=== PATIENT | male | born 1935 | race Hispanic/Latino ===

== ENCOUNTER 2022-08-15 12:24 | Inpatient (IN) | payer MEDICARE ==
[~2022-08-15] VITALS: Ht 175.3 cm; Wt 77.2 kg
[2022-08-15] VITALS (13 sets, daily range): BP systolic 100–140; BP diastolic 40–91
[2022-08-15] MEDS ORDERED: CLOPIDOGREL75 MG PO (13:09)
[2022-08-15] MEDS ORDERED: ASPIRIN81 MG PO (13:09)
[2022-08-15] MEDS ORDERED: BENAZEPRIL HCL10 MG PO (13:09)
[2022-08-15] MEDS ORDERED: AMLODIPINE BESY10 MG PO (13:09)
[2022-08-15] MEDS ORDERED: DOXAZOSIN MESYLA2 MG PO (13:09)
[2022-08-15] MEDS ORDERED: FLOMAX0.4 MG PO (13:09)
[2022-08-15] MEDS ORDERED: SIMVASTATIN20 MG PO (13:09)
[2022-08-15] MEDS ORDERED: BENAZEPRIL-HCT1 EAC3 PO (13:09)
[2022-08-15] MEDS ORDERED: REMDESIVIR 200MG 200 MG in SODIUM CHLORIDE 0.9% 100 ML IV ONE (13:30)
[2022-08-15 13:31] LABS: BASOPHILS % 0.2 % (0.0-1.0); HEMATOCRIT 32.1 % (38.2-49.6); HEMOGLOBIN 11.4 g/dL (14.0-18.0); LYMPHOCYTES # (AUTO) 0.2 (1.0-3.2); LYMPHOCYTES % 1.4 % (18.0-39.1); MEAN CORPUSCULAR HEMOGLOBIN 32.2 pg (28-32); MEAN CORPUSCULAR HGB CONC 35.5 g/dL (31-35); MEAN CORPUSCULAR VOLUME 90.7 fL (81-99); MONOCYTES # (AUTO) 0.2 (0.2-0.8); MONOCYTES % 1.8 % (4.4-11.3); NEUTROPHILS # (AUTO) 11.2 (2.1-6.9); NEUTROPHILS % 95.8 % (38.7-80.0); PLATELET COUNT 245 x10e3/uL (140-360); RED BLOOD COUNT 3.54 x10e6/uL (4.3-5.7); RED CELL DISTRIBUTION WIDTH 12.3 % (11.7-14.4)
[2022-08-15 13:52] LABS: ALBUMIN 2.6 g/dL (3.5-5.0); ALBUMIN/GLOBULIN RATIO 0.7 (0.8-2.0); CALCIUM 8.6 mg/dL (8.4-10.2); CREATININE, SERUM 1.08 mg/dL (0.72-1.25)
[2022-08-15] MEDS ORDERED: POTASSIUM CHLORIDE 20 MEQ TAB CR PO ONE (14:30)
[2022-08-15] MEDS: DEXAMETHASONE SOD PHOS 10 MG/1 ML VIAL IV SCH (15:15)
[2022-08-15] MEDS: ENOXAPARIN SOD INJ 40 MG/0.4 ML SYR SC SCH (16:33)
[2022-08-15] MEDS: BENZONATATE 100 MG CAP PO PRN (20:55)
[2022-08-15] MEDS: SIMVASTATIN 20 MG TAB PO SCH (20:55)
[2022-08-16] VITALS (24 sets, daily range): BP systolic 99–129; BP diastolic 32–94
[2022-08-16 06:31] LABS: BASOPHILS % 0.1 % (0.0-1.0); HEMATOCRIT 35.2 % (38.2-49.6); HEMOGLOBIN 11.4 g/dL (14.0-18.0); LYMPHOCYTES # (AUTO) 0.5 (1.0-3.2); LYMPHOCYTES % 3.4 % (18.0-39.1); MEAN CORPUSCULAR HEMOGLOBIN 31.5 pg (28-32); MEAN CORPUSCULAR HGB CONC 32.4 g/dL (31-35); MEAN CORPUSCULAR VOLUME 97.2 fL (81-99); MONOCYTES # (AUTO) 0.5 (0.2-0.8); MONOCYTES % 3.2 % (4.4-11.3); NEUTROPHILS # (AUTO) 13.2 (2.1-6.9); NEUTROPHILS % 92.6 % (38.7-80.0); PLATELET COUNT 311 x10e3/uL (140-360); RED BLOOD COUNT 3.62 x10e6/uL (4.3-5.7); RED CELL DISTRIBUTION WIDTH 11.8 % (11.7-14.4)
[2022-08-16 07:08] LABS: ANION GAP 15.5 mmol/L (8-16); CALCIUM 8.7 mg/dL (8.4-10.2); MAGNESIUM 2.1 MG/DL (1.3-2.1); PHOSPHORUS 3.7 MG/DL (2.3-4.7); POTASSIUM 3.5 mmol/L (3.5-5.1)
[2022-08-16] MEDS: TAMSULOSIN HCL 0.4 MG CAP PO SCH (08:15)
[2022-08-16] MEDS: LORATADINE 10 MG TAB PO SCH (08:15)
[2022-08-16] MEDS: DEXAMETHASONE SOD PHOS 10 MG/1 ML VIAL IV SCH (08:16)
[2022-08-16] MEDS ORDERED: POTASSIUM CHLORIDE 20 MEQ TAB CR PO ONE (11:00)
[2022-08-16] MEDS: REMDESIVIR 100MG 100 MG in SODIUM CHLORIDE 0.9% 100 ML IV SCH (14:09)
[2022-08-16] MEDS: ENOXAPARIN SOD INJ 40 MG/0.4 ML SYR SC SCH (16:39)
[2022-08-16] MEDS: SIMVASTATIN 20 MG TAB PO SCH (20:51)
[2022-08-17] VITALS (26 sets, daily range): BP systolic 101–157; BP diastolic 36–89
[2022-08-17 07:30] LABS: BASOPHILS % 0.2 % (0.0-1.0); HEMATOCRIT 34.8 % (38.2-49.6); HEMOGLOBIN 11.4 g/dL (14.0-18.0); LYMPHOCYTES # (AUTO) 0.6 (1.0-3.2); LYMPHOCYTES % 3.4 % (18.0-39.1); MEAN CORPUSCULAR HEMOGLOBIN 31.8 pg (28-32); MEAN CORPUSCULAR HGB CONC 32.8 g/dL (31-35); MEAN CORPUSCULAR VOLUME 96.9 fL (81-99); MONOCYTES # (AUTO) 0.8 (0.2-0.8); MONOCYTES % 4.5 % (4.4-11.3); NEUTROPHILS # (AUTO) 16.5 (2.1-6.9); NEUTROPHILS % 91.2 % (38.7-80.0); PLATELET COUNT 364 x10e3/uL (140-360); RED BLOOD COUNT 3.59 x10e6/uL (4.3-5.7)
[2022-08-17 08:03] LABS: ANION GAP 13.9 mmol/L (8-16); CALCIUM 8.4 mg/dL (8.4-10.2); CREATININE, SERUM 0.95 mg/dL (0.72-1.25); PHOSPHORUS 3.5 MG/DL (2.3-4.7); POTASSIUM 3.9 mmol/L (3.5-5.1)
[2022-08-17] MEDS: BARICITINIB 2 MG TABLET PO SCH (08:49)
[2022-08-17] MEDS: TAMSULOSIN HCL 0.4 MG CAP PO SCH (08:49)
[2022-08-17] MEDS: DEXAMETHASONE SOD PHOS 10 MG/1 ML VIAL IV SCH (08:49)
[2022-08-17] MEDS: LORATADINE 10 MG TAB PO SCH (08:49)
[2022-08-17] MEDS: REMDESIVIR 100MG 100 MG in SODIUM CHLORIDE 0.9% 100 ML IV SCH (13:23)
[2022-08-17] MEDS: ENOXAPARIN SOD INJ 40 MG/0.4 ML SYR SC SCH (17:54)
[2022-08-17] MEDS: GUAIFENESIN/DEXTROMETHORPHAN LIQD 5 ML UDC NG PRN (17:54)
[2022-08-17] MEDS: SIMVASTATIN 20 MG TAB PO SCH (20:43)
[2022-08-17] MEDS: BENZONATATE 100 MG CAP PO PRN (23:04)
[2022-08-18] VITALS (25 sets, daily range): BP systolic 127–176; BP diastolic 49–130
[2022-08-18 06:48] LABS: BASOPHILS % 0.1 % (0.0-1.0); HEMATOCRIT 33.3 % (38.2-49.6); HEMOGLOBIN 11.3 g/dL (14.0-18.0); LYMPHOCYTES # (AUTO) 0.8 (1.0-3.2); LYMPHOCYTES % 6.2 % (18.0-39.1); MEAN CORPUSCULAR HEMOGLOBIN 31.3 pg (28-32); MEAN CORPUSCULAR HGB CONC 33.9 g/dL (31-35); MEAN CORPUSCULAR VOLUME 92.2 fL (81-99); MONOCYTES # (AUTO) 0.8 (0.2-0.8); MONOCYTES % 5.9 % (4.4-11.3); NEUTROPHILS # (AUTO) 11.8 (2.1-6.9); NEUTROPHILS % 86.9 % (38.7-80.0); PLATELET COUNT 380 x10e3/uL (140-360); RED BLOOD COUNT 3.61 x10e6/uL (4.3-5.7); RED CELL DISTRIBUTION WIDTH 12.7 % (11.7-14.4)
[2022-08-18 07:09] LABS: ALBUMIN 2.2 g/dL (3.5-5.0); ALBUMIN/GLOBULIN RATIO 0.6 (0.8-2.0); ANION GAP 14.8 mmol/L (8-16); CALCIUM 8.3 mg/dL (8.4-10.2); CREATININE, SERUM 0.88 mg/dL (0.72-1.25); POTASSIUM 3.8 mmol/L (3.5-5.1)
[2022-08-18] MEDS: DEXAMETHASONE SOD PHOS 10 MG/1 ML VIAL IV SCH (08:34)
[2022-08-18] MEDS: TAMSULOSIN HCL 0.4 MG CAP PO SCH (08:35)
[2022-08-18] MEDS: BENZONATATE 100 MG CAP PO PRN ×2 (08:35→16:31)
[2022-08-18] MEDS: LORATADINE 10 MG TAB PO SCH (08:35)
[2022-08-18] MEDS: BARICITINIB 2 MG TABLET PO SCH (08:35)
[2022-08-18] MEDS: DEXMEDETOMIDINE 400MCG/NS100ML 100 ML IV PRN (11:28)
[2022-08-18] MEDS: REMDESIVIR 100MG 100 MG in SODIUM CHLORIDE 0.9% 100 ML IV SCH (14:06)
[2022-08-18] MEDS: ENOXAPARIN SOD INJ 40 MG/0.4 ML SYR SC SCH (16:31)
[2022-08-18] MEDS: SIMVASTATIN 20 MG TAB PO SCH (21:01)
[2022-08-19] VITALS (29 sets, daily range): BP systolic 114–192; BP diastolic 49–124
[2022-08-19] MEDS: DEXMEDETOMIDINE 400MCG/NS100ML 100 ML IV PRN ×2 (06:20→18:30)
[2022-08-19 06:57] LABS: BASOPHILS % 0.2 % (0.0-1.0); HEMATOCRIT 39.7 % (38.2-49.6); HEMOGLOBIN 12.7 g/dL (14.0-18.0); LYMPHOCYTES # (AUTO) 0.9 (1.0-3.2); LYMPHOCYTES % 7.4 % (18.0-39.1); MEAN CORPUSCULAR HEMOGLOBIN 31.5 pg (28-32); MEAN CORPUSCULAR VOLUME 98.5 fL (81-99); MONOCYTES # (AUTO) 0.6 (0.2-0.8); MONOCYTES % 4.7 % (4.4-11.3); NEUTROPHILS # (AUTO) 10.8 (2.1-6.9); NEUTROPHILS % 86.3 % (38.7-80.0); PLATELET COUNT 350 x10e3/uL (140-360); RED BLOOD COUNT 4.03 x10e6/uL (4.3-5.7); RED CELL DISTRIBUTION WIDTH 12.1 % (11.7-14.4)
[2022-08-19 07:26] LABS: ALBUMIN 2.2 g/dL (3.5-5.0); ALBUMIN/GLOBULIN RATIO 0.6 (0.8-2.0); ANION GAP 15.1 mmol/L (8-16); CALCIUM 8.3 mg/dL (8.4-10.2); CREATININE, SERUM 0.84 mg/dL (0.72-1.25); POTASSIUM 4.1 mmol/L (3.5-5.1)
[2022-08-19] MEDS: BARICITINIB 2 MG TABLET PO SCH (08:32)
[2022-08-19] MEDS: TAMSULOSIN HCL 0.4 MG CAP PO SCH (08:32)
[2022-08-19] MEDS: LORATADINE 10 MG TAB PO SCH (08:32)
[2022-08-19] MEDS: DEXAMETHASONE SOD PHOS 10 MG/1 ML VIAL IV SCH (08:33)
[2022-08-19] MEDS: REMDESIVIR 100MG 100 MG in SODIUM CHLORIDE 0.9% 100 ML IV SCH (14:00)
[2022-08-19] MEDS: ENOXAPARIN SOD INJ 40 MG/0.4 ML SYR SC SCH (16:48)
[2022-08-19] MEDS: BENZONATATE 100 MG CAP PO PRN (16:48)
[2022-08-19] MEDS: HYDRALAZINE HCL 20 MG/ML VIAL IV PRN (20:18)
[2022-08-19] MEDS: SIMVASTATIN 20 MG TAB PO SCH (20:18)
[2022-08-20] VITALS (26 sets, daily range): BP systolic 106–193; BP diastolic 48–92
[2022-08-20 06:48] LABS: BASOPHILS % 0.2 % (0.0-1.0); HEMATOCRIT 40.9 % (38.2-49.6); HEMOGLOBIN 13.1 g/dL (14.0-18.0); LYMPHOCYTES # (AUTO) 1.1 (1.0-3.2); MEAN CORPUSCULAR HEMOGLOBIN 31.4 pg (28-32); MEAN CORPUSCULAR VOLUME 98.1 fL (81-99); MONOCYTES # (AUTO) 0.6 (0.2-0.8); MONOCYTES % 4.8 % (4.4-11.3); NEUTROPHILS # (AUTO) 10.2 (2.1-6.9); NEUTROPHILS % 84.6 % (38.7-80.0); PLATELET COUNT 359 x10e3/uL (140-360); RED BLOOD COUNT 4.17 x10e6/uL (4.3-5.7); RED CELL DISTRIBUTION WIDTH 12.3 % (11.7-14.4)
[2022-08-20 07:15] LABS: ALBUMIN 2.3 g/dL (3.5-5.0); ALBUMIN/GLOBULIN RATIO 0.6 (0.8-2.0); CALCIUM 8.4 mg/dL (8.4-10.2); CREATININE, SERUM 0.81 mg/dL (0.72-1.25)
[2022-08-20] MEDS: DEXAMETHASONE SOD PHOS 10 MG/1 ML VIAL IV SCH (08:12)
[2022-08-20] MEDS: BARICITINIB 2 MG TABLET PO SCH (08:12)
[2022-08-20] MEDS: TAMSULOSIN HCL 0.4 MG CAP PO SCH (08:12)
[2022-08-20] MEDS: LORATADINE 10 MG TAB PO SCH (08:13)
[2022-08-20] MEDS: DEXMEDETOMIDINE 400MCG/NS100ML 100 ML IV PRN ×2 (09:21→21:55)
[2022-08-20] MEDS: ENOXAPARIN SOD INJ 40 MG/0.4 ML SYR SC SCH (16:35)
[2022-08-20] MEDS: SIMVASTATIN 20 MG TAB PO SCH (20:08)
[2022-08-20] MEDS: HYDRALAZINE HCL 20 MG/ML VIAL IV PRN (20:08)
[2022-08-21] VITALS (26 sets, daily range): BP systolic 94–188; BP diastolic 52–93
[2022-08-21] MEDS: HYDRALAZINE HCL 20 MG/ML VIAL IV PRN ×2 (02:07→19:16)
[2022-08-21 06:55] LABS: BASOPHILS % 0.2 % (0.0-1.0); EOSINOPHILS % 0.1 % (0.0-6.0); HEMATOCRIT 38.7 % (38.2-49.6); HEMOGLOBIN 13.2 g/dL (14.0-18.0); LYMPHOCYTES % 7.7 % (18.0-39.1); MEAN CORPUSCULAR HEMOGLOBIN 31.7 pg (28-32); MEAN CORPUSCULAR HGB CONC 34.1 g/dL (31-35); MEAN CORPUSCULAR VOLUME 92.8 fL (81-99); MONOCYTES # (AUTO) 0.6 (0.2-0.8); MONOCYTES % 5.1 % (4.4-11.3); NEUTROPHILS # (AUTO) 10.7 (2.1-6.9); NEUTROPHILS % 85.3 % (38.7-80.0); PLATELET COUNT 286 x10e3/uL (140-360); RED BLOOD COUNT 4.17 x10e6/uL (4.3-5.7); RED CELL DISTRIBUTION WIDTH 12.8 % (11.7-14.4)
[2022-08-21 07:14] LABS: ALBUMIN 2.2 g/dL (3.5-5.0); ALBUMIN/GLOBULIN RATIO 0.6 (0.8-2.0); CALCIUM 8.2 mg/dL (8.4-10.2); CREATININE, SERUM 0.82 mg/dL (0.72-1.25)
[2022-08-21] MEDS: TAMSULOSIN HCL 0.4 MG CAP PO SCH (08:11)
[2022-08-21] MEDS: LORATADINE 10 MG TAB PO SCH (08:11)
[2022-08-21] MEDS: BARICITINIB 2 MG TABLET PO SCH (08:11)
[2022-08-21] MEDS: DEXAMETHASONE SOD PHOS 10 MG/1 ML VIAL IV SCH (08:11)
[2022-08-21] MEDS: DEXMEDETOMIDINE 400MCG/NS100ML 100 ML IV PRN (12:16)
[2022-08-21] MEDS: ENOXAPARIN SOD INJ 40 MG/0.4 ML SYR SC SCH (16:33)
[2022-08-21] MEDS: SIMVASTATIN 20 MG TAB PO SCH (19:46)
[2022-08-22] VITALS (25 sets, daily range): BP systolic 77–202; BP diastolic 49–153
[2022-08-22] MEDS: HYDRALAZINE HCL 20 MG/ML VIAL IV PRN (03:10)
[2022-08-22 07:00] LABS: BASOPHILS % 0.2 % (0.0-1.0); EOSINOPHILS % 0.1 % (0.0-6.0); HEMATOCRIT 37.6 % (38.2-49.6); HEMOGLOBIN 12.6 g/dL (14.0-18.0); LYMPHOCYTES # (AUTO) 1.1 (1.0-3.2); LYMPHOCYTES % 8.7 % (18.0-39.1); MEAN CORPUSCULAR HEMOGLOBIN 31.4 pg (28-32); MEAN CORPUSCULAR HGB CONC 33.5 g/dL (31-35); MEAN CORPUSCULAR VOLUME 93.8 fL (81-99); MONOCYTES # (AUTO) 0.7 (0.2-0.8); MONOCYTES % 5.4 % (4.4-11.3); NEUTROPHILS # (AUTO) 10.2 (2.1-6.9); PLATELET COUNT 228 x10e3/uL (140-360); RED BLOOD COUNT 4.01 x10e6/uL (4.3-5.7); RED CELL DISTRIBUTION WIDTH 12.7 % (11.7-14.4)
[2022-08-22 07:26] LABS: ALBUMIN 2.1 g/dL (3.5-5.0); ALBUMIN/GLOBULIN RATIO 0.6 (0.8-2.0); ANION GAP 13.1 mmol/L (8-16); CREATININE, SERUM 0.81 mg/dL (0.72-1.25); POTASSIUM 4.1 mmol/L (3.5-5.1)
[2022-08-22] MEDS: LORATADINE 10 MG TAB PO SCH (08:03)
[2022-08-22] MEDS: TAMSULOSIN HCL 0.4 MG CAP PO SCH (08:03)
[2022-08-22] MEDS: BENZONATATE 100 MG CAP PO PRN (08:03)
[2022-08-22] MEDS: BARICITINIB 2 MG TABLET PO SCH (08:03)
[2022-08-22] MEDS: DEXAMETHASONE SOD PHOS 10 MG/1 ML VIAL IV SCH (08:04)
[2022-08-22] MEDS ORDERED: IOPAMIDOL 370 MG/ML 100 ML INFUS..BTL INJ ONE (10:59)
[2022-08-22] MEDS ORDERED: AMIODARONE 900MG 900 MG in Premix Bag 1 BAG IV SCH (12:15)
[2022-08-22] MEDS ORDERED: AMIODARONE HCL 150 MG/100 ML BAG IV ONE ×2 (12:15→12:30)
[2022-08-22] MEDS: METOPROLOL TARTRATE 25 MG TAB PO SCH ×2 (12:21→21:00)
[2022-08-22] MEDS ORDERED: AMIODARONE HCL 100 ML IV ONE (12:30)
[2022-08-22] MEDS ORDERED: FLUCONAZOLE 200 MG/100 ML 100 ML IV SCH (13:00)
[2022-08-22] MEDS ORDERED: SODIUM CHLORIDE 0.9% 1000ML 1,000 ML IV ONE (14:30)
[2022-08-22] MEDS: SIMVASTATIN 20 MG TAB PO SCH (21:52)
[2022-08-22] MEDS: DEXMEDETOMIDINE 400MCG/NS100ML 100 ML IV PRN (22:23)
[2022-08-23] VITALS (21 sets, daily range): BP systolic 112–167; BP diastolic 52–117
[2022-08-23 06:54] LABS: BASOPHILS % 0.1 % (0.0-1.0); HEMATOCRIT 38.8 % (38.2-49.6); HEMOGLOBIN 12.4 g/dL (14.0-18.0); LYMPHOCYTES # (AUTO) 0.9 (1.0-3.2); LYMPHOCYTES % 6.4 % (18.0-39.1); MEAN CORPUSCULAR HEMOGLOBIN 31.4 pg (28-32); MEAN CORPUSCULAR VOLUME 98.2 fL (81-99); MONOCYTES # (AUTO) 0.7 (0.2-0.8); MONOCYTES % 4.6 % (4.4-11.3); NEUTROPHILS # (AUTO) 12.6 (2.1-6.9); NEUTROPHILS % 87.6 % (38.7-80.0); PLATELET COUNT 358 x10e3/uL (140-360); RED BLOOD COUNT 3.95 x10e6/uL (4.3-5.7); RED CELL DISTRIBUTION WIDTH 12.4 % (11.7-14.4)
[2022-08-23 07:11] LABS: ALBUMIN 2.6 g/dL (3.5-5.0); ALBUMIN/GLOBULIN RATIO 0.8 (0.8-2.0); ANION GAP 15.1 mmol/L (8-16); CALCIUM 8.1 mg/dL (8.4-10.2); CREATININE, SERUM 0.92 mg/dL (0.72-1.25); POTASSIUM 4.1 mmol/L (3.5-5.1)
[2022-08-23] MEDS: BARICITINIB 2 MG TABLET PO SCH (07:49)
[2022-08-23] MEDS: LORATADINE 10 MG TAB PO SCH (07:49)
[2022-08-23] MEDS: GUAIFENESIN/DEXTROMETHORPHAN LIQD 5 ML UDC NG PRN (07:49)
[2022-08-23] MEDS: TAMSULOSIN HCL 0.4 MG CAP PO SCH (07:50)
[2022-08-23] MEDS: DEXAMETHASONE SOD PHOS 10 MG/1 ML VIAL IV SCH (07:50)
[2022-08-23] MEDS: METOPROLOL TARTRATE 25 MG TAB PO SCH ×2 (07:50→21:00)
[2022-08-23 08:36] LABS: CHOL/HDL RATIO 3.4 (3.9-4.7)
[2022-08-23 08:58] LABS: FREE THYROXINE INDEX 1.8659 (1.4-3.8); THYROID STIMULATING HORMONE 0.721 uIU/mL (0.350-4.940)
[2022-08-23] MEDS: AMLODIPINE BESYLATE 10 MG TAB PO SCH (11:12)
[2022-08-23] MEDS: ENOXAPARIN INJ 80 MG/0.8 ML SYR SC SCH ×2 (11:12→20:56)
[2022-08-23] MEDS: DEXMEDETOMIDINE 400MCG/NS100ML 100 ML IV PRN (15:32)
[2022-08-23] MEDS: SIMVASTATIN 20 MG TAB PO SCH (20:56)
[2022-08-24] VITALS (16 sets, daily range): BP systolic 126–168; BP diastolic 55–111
[2022-08-24] MEDS ORDERED: DIAZEPAM 5 MG TAB PO PRN (06:15)
[2022-08-24] MEDS: DEXAMETHASONE SOD PHOS 10 MG/1 ML VIAL IV SCH (08:33)
[2022-08-24] MEDS: TAMSULOSIN HCL 0.4 MG CAP PO SCH (08:33)
[2022-08-24] MEDS: AMIODARONE HCL 200 MG TAB PO SCH ×2 (08:33→16:14)
[2022-08-24] MEDS: AMLODIPINE BESYLATE 10 MG TAB PO SCH (08:34)
[2022-08-24] MEDS: BARICITINIB 2 MG TABLET PO SCH (08:34)
[2022-08-24] MEDS: LORATADINE 10 MG TAB PO SCH (08:34)
[2022-08-24] MEDS: METOPROLOL TARTRATE 25 MG TAB PO SCH ×2 (08:35→20:41)
[2022-08-24] MEDS: ENOXAPARIN INJ 80 MG/0.8 ML SYR SC SCH (08:35)
[2022-08-24] MEDS ORDERED: MAGNESIUM HYDROXIDE 30 ML UDC PO ONE (12:15)
[2022-08-24] MEDS: APIXABAN 5 MG TABLET PO SCH (16:14)
[2022-08-24] MEDS: SIMVASTATIN 20 MG TAB PO SCH (20:40)
[2022-08-25] VITALS (12 sets, daily range): BP systolic 135–164; BP diastolic 56–77
[2022-08-25] MEDS: BARICITINIB 2 MG TABLET PO SCH (08:07)
[2022-08-25] MEDS: AMIODARONE HCL 200 MG TAB PO SCH ×2 (08:08→17:11)
[2022-08-25] MEDS: APIXABAN 5 MG TABLET PO SCH ×2 (08:08→17:11)
[2022-08-25] MEDS: TAMSULOSIN HCL 0.4 MG CAP PO SCH (08:08)
[2022-08-25] MEDS: LORATADINE 10 MG TAB PO SCH (08:08)
[2022-08-25] MEDS: METOPROLOL TARTRATE 25 MG TAB PO SCH ×2 (08:09→21:52)
[2022-08-25] MEDS: AMLODIPINE BESYLATE 10 MG TAB PO SCH (08:09)
[2022-08-25] MEDS: SIMVASTATIN 20 MG TAB PO SCH (21:52)
[2022-08-26] VITALS (8 sets, daily range): BP systolic 120–167; BP diastolic 50–87
[2022-08-26 06:45] LABS: BASOPHILS % 0.1 % (0.0-1.0); EOSINOPHILS % 0.1 % (0.0-6.0); HEMATOCRIT 36.4 % (38.2-49.6); HEMOGLOBIN 12.1 g/dL (14.0-18.0); LYMPHOCYTES # (AUTO) 0.9 (1.0-3.2); LYMPHOCYTES % 6.6 % (18.0-39.1); MEAN CORPUSCULAR HEMOGLOBIN 31.3 pg (28-32); MEAN CORPUSCULAR HGB CONC 33.2 g/dL (31-35); MEAN CORPUSCULAR VOLUME 94.1 fL (81-99); MONOCYTES # (AUTO) 0.9 (0.2-0.8); MONOCYTES % 6.5 % (4.4-11.3); NEUTROPHILS # (AUTO) 11.4 (2.1-6.9); NEUTROPHILS % 86.1 % (38.7-80.0); PLATELET COUNT 354 x10e3/uL (140-360); RED BLOOD COUNT 3.87 x10e6/uL (4.3-5.7); RED CELL DISTRIBUTION WIDTH 12.7 % (11.7-14.4)
[2022-08-26 07:11] LABS: ALBUMIN 2.8 g/dL (3.5-5.0); ALBUMIN/GLOBULIN RATIO 0.9 (0.8-2.0); CALCIUM 8.1 mg/dL (8.4-10.2); CREATININE, SERUM 1.04 mg/dL (0.72-1.25)
[2022-08-26] MEDS: TAMSULOSIN HCL 0.4 MG CAP PO SCH (08:26)
[2022-08-26] MEDS: APIXABAN 5 MG TABLET PO SCH ×2 (08:26→17:54)
[2022-08-26] MEDS: BARICITINIB 2 MG TABLET PO SCH (08:26)
[2022-08-26] MEDS: METOPROLOL TARTRATE 25 MG TAB PO SCH ×2 (08:27→21:00)
[2022-08-26] MEDS: LORATADINE 10 MG TAB PO SCH (08:27)
[2022-08-26] MEDS: AMLODIPINE BESYLATE 10 MG TAB PO SCH (08:27)
[2022-08-26] MEDS: AMIODARONE HCL 200 MG TAB PO SCH ×2 (08:28→17:54)
[2022-08-26] MEDS ORDERED: ACETAMINOPHEN 325 MG TAB PO PRN (09:30)
[2022-08-26] MEDS ORDERED: METOPROLOL TARTRATE 25 MG TAB PO ONE (09:45)
[2022-08-26] MEDS: SIMVASTATIN 20 MG TAB PO SCH (21:23)
[2022-08-27] VITALS: BP 135/60
[2022-08-27 04:00] VITALS: BP 146/67
[2022-08-27 08:00] VITALS: BP 144/66
[2022-08-27] MEDS ORDERED: LORATADINE10 MG PO (08:57)
[2022-08-27] MEDS ORDERED: AMIODARONE HCL200 MG PO (08:57)
[2022-08-27] MEDS ORDERED: Benzonatate PO (08:57)
[2022-08-27] MEDS ORDERED: ELIQUIS5 MG PO (08:57)
[2022-08-27] MEDS ORDERED: LOPRESSOR25 MG PO (08:57)
[2022-08-27] MEDS: BARICITINIB 2 MG TABLET PO SCH (09:30)
[2022-08-27] MEDS: AMIODARONE HCL 200 MG TAB PO SCH (09:31)
[2022-08-27] MEDS: TAMSULOSIN HCL 0.4 MG CAP PO SCH (09:31)
[2022-08-27] MEDS: APIXABAN 5 MG TABLET PO SCH (09:31)
[2022-08-27] MEDS: LORATADINE 10 MG TAB PO SCH (09:31)
[2022-08-27] MEDS: METOPROLOL TARTRATE 25 MG TAB PO SCH (09:31)
[2022-08-27] MEDS: AMLODIPINE BESYLATE 10 MG TAB PO SCH (09:32)
== END 2022-08-27 12:44 | disposition home or self-care (01) | DRG 177 ==
LOC: ICU 12:30 → MED/SURG2 08-25 15:10
PROVIDERS: ADMIT Internal Medicine; ATTEND Internal Medicine
PROC: XW033E5 Introduction of Remdesivir Anti-infective into Peripheral Vein, Percutaneous Approach, New Technology Group 5 (ICD-10-PCS; principal; 2022-08-15)
PROC: XW033E5 Introduction of Remdesivir Anti-infective into Peripheral Vein, Percutaneous Approach, New Technology Group 5 (ICD-10-PCS; 2022-08-16)
PROC: XW033E5 Introduction of Remdesivir Anti-infective into Peripheral Vein, Percutaneous Approach, New Technology Group 5 (ICD-10-PCS; 2022-08-17)
PROC: 02HV33Z Insertion of Infusion Device into Superior Vena Cava, Percutaneous Approach (ICD-10-PCS; 2022-08-17)
PROC: XW033E5 Introduction of Remdesivir Anti-infective into Peripheral Vein, Percutaneous Approach, New Technology Group 5 (ICD-10-PCS; 2022-08-18)
PROC: XW033E5 Introduction of Remdesivir Anti-infective into Peripheral Vein, Percutaneous Approach, New Technology Group 5 (ICD-10-PCS; 2022-08-19)
DX: U07.1 COVID-19 (principal); J12.82 Pneumonia due to coronavirus disease 2019; J96.01 Acute respiratory failure with hypoxia; E87.1 Hypo-osmolality and hyponatremia; I47.1 Supraventricular tachycardia; I69.354 Hemiplegia and hemiparesis following cerebral infarction affecting left non-dominant side; I48.0 Paroxysmal atrial fibrillation; R53.81 Other malaise; I50.9 Heart failure, unspecified; I11.0 Hypertensive heart disease with heart failure; I08.3 Combined rheumatic disorders of mitral, aortic and tricuspid valves; R25.2 Cramp and spasm; R00.1 Bradycardia, unspecified; F41.9 Anxiety disorder, unspecified; E87.6 Hypokalemia; E78.5 Hyperlipidemia, unspecified; N40.0 Benign prostatic hyperplasia without lower urinary tract symptoms; Z87.891 Personal history of nicotine dependence; Z79.899 Other long term (current) drug therapy
CPT/HCPCS: 36415; 36569; 71045; 80048; 80053; 80061; 82948; 83036; 83735; 83880; 84100; 84436; 84443; 84479; 84484; 85025; 86140; 93005; 93306; 94799; 99252; J0248; J0360; J0456; J0696; J1100; J1450; J1650; J7030; J7050; Q9967

== ENCOUNTER → 2022-09-07 | Outpatient (CLI) | payer MEDICARE ==
[~2022-09-07] MED LIST: AMIODARONE HCL200 MG PO; AMLODIPINE BESY10 MG PO; ASPIRIN81 MG PO; BENAZEPRIL HCL10 MG PO; BENAZEPRIL-HCT1 EAC3 PO; BENZONATATE100 MG PO; Benzonatate PO; CLOPIDOGREL75 MG PO; DOXAZOSIN MESYLA2 MG PO; ELIQUIS5 MG PO; FERROUS SULFAT325 M1 PO; FLOMAX0.4 MG PO; LOPRESSOR25 MG PO; LORATADINE10 MG PO; METOPROLOL TART25 MG PO; SIMVASTATIN20 MG PO
== END ==
LOC: RAD 10:55
PROVIDERS: ATTEND Internal Medicine Critical Care Medicine
DX: R06.00 Dyspnea, unspecified (principal)
CPT/HCPCS: 71046

== ENCOUNTER 2022-09-10 08:12 | Inpatient (IN) | payer MEDICARE ==
[~2022-09-10] VITALS: Ht 175.3 cm; Wt 81.6 kg
[~2022-09-10 08:12] MED LIST changes: -BENZONATATE100 MG PO; -FERROUS SULFAT325 M1 PO; -METOPROLOL TART25 MG PO
[2022-09-10] MEDS ORDERED: CEFTRIAXONE 1 GM VIAL IV SCH (08:30)
[2022-09-10 08:35] LABS: BASOPHILS % 0.2 % (0.0-1.0); EOSINOPHILS % 0.2 % (0.0-6.0); HEMATOCRIT 22.7 % (38.2-49.6); LYMPHOCYTES # (AUTO) 0.5 (1.0-3.2); LYMPHOCYTES % 8.2 % (18.0-39.1); MEAN CORPUSCULAR HEMOGLOBIN 30.5 pg (28-32); MEAN CORPUSCULAR VOLUME 101.8 fL (81-99); MONOCYTES # (AUTO) 0.4 (0.2-0.8); MONOCYTES % 6.9 % (4.4-11.3); NEUTROPHILS % 83.7 % (38.7-80.0); PLATELET COUNT 181 x10e3/uL (140-360); RED BLOOD COUNT 2.23 x10e6/uL (4.3-5.7); RED CELL DISTRIBUTION WIDTH 13.3 % (11.7-14.4)
[2022-09-10 08:38] LABS: HEMOGLOBIN 6.8 g/dL (14.0-18.0)
[2022-09-10] MEDS ORDERED: SODIUM CHLORIDE 0.9% 250ML 250 ML IV ONE (08:45)
[2022-09-10 08:46] LABS: INR 1.44; PROTHROMBIN TIME 17.7 seconds (11.9-14.5)
[2022-09-10 08:47] LABS: PARTIAL THROMBOPLASTIN TIME 41.7 seconds (23.8-35.5)
[2022-09-10 08:53] LABS: ALBUMIN 2.3 g/dL (3.5-5.0); ALBUMIN/GLOBULIN RATIO 0.6 (0.8-2.0); ANION GAP 13.7 mmol/L (8-16); CALCIUM 8.2 mg/dL (8.4-10.2); CREATININE, SERUM 0.82 mg/dL (0.72-1.25); POTASSIUM 3.7 mmol/L (3.5-5.1)
[2022-09-10] MEDS ORDERED: IOPAMIDOL 370 MG/ML 100 ML INFUS..BTL INJ ONE (09:21)
[2022-09-10 10:32] LABS: CLARITY,URINE CLEAR (CLEAR); COLOR,URINE YELLOW (YELLOW); KETONES,URINE 2+ (NEGATIVE); LEUKOCYTE ESTERASE ,URINE NEGATIVE (NEGATIVE); NITRITE,URINE NEGATIVE (NEGATIVE); PROTEIN,URINE DIPSTICK 2+ (NEGATIVE)
[2022-09-10 10:33] LABS: URINE UROBILINOGEN 1 mg/dL (0.2 - 1)
[2022-09-10 10:35] LABS: BACTERIA,URINE MODERATE /HPF; EPITHELIAL CELLS,URINE RARE /LPF; WBC,URINE (MAN) 0-5 /HPF (0-5)
[2022-09-10] MEDS ORDERED: ONDANSETRON HCL INJ 2MG/ML 2ML 2 MG/ML VIAL IV PRN (11:15)
[2022-09-10] MEDS ORDERED: SODIUM CHLORIDE FLUSH 10 ML SYR INJ PRN (11:15)
[2022-09-10] MEDS ORDERED: METOPROLOL TART25 MG PO (12:55)
[2022-09-10 13:00] VITALS: BP 184/80
[2022-09-10 13:09] VITALS: BP 184/80
[2022-09-10 13:11] VITALS: BP 184/80
[2022-09-10] MEDS ORDERED: SODIUM CHLORIDE 0.9% 250ML 250 ML ONE (14:21)
[2022-09-10] MEDS ORDERED: FERROUS SULFAT325 M1 PO (14:46)
[2022-09-10] MEDS ORDERED: BENZONATATE100 MG PO (14:46)
[2022-09-10] MEDS ORDERED: SIMVASTATIN20 MG PO (14:46)
[2022-09-10 15:55] VITALS: BP 143/90
[2022-09-10] MEDS: DOCUSATE SODIUM 100 MG CAP PO SCH (17:00)
[2022-09-10] MEDS: SENNOSIDES 8.6 MG TAB PO SCH (17:00)
[2022-09-10 20:00] VITALS: BP 154/69
[2022-09-10 20:53] VITALS: BP 154/69
[2022-09-10] MEDS ORDERED: GUAIFENESIN/DEXTROMETHORPHAN LIQD 5 ML UDC NG PRN (21:15)
[2022-09-10] MEDS: Doxycycline IV 100 MG in SODIUM CHLORIDE 0.9% 100 ML IV SCH (22:22)
[2022-09-10] MEDS ORDERED: SODIUM CHLORIDE 0.9% 250ML 500 ML ONE (22:23)
[2022-09-11] VITALS (8 sets, daily range): BP systolic 131–158; BP diastolic 55–69
[2022-09-11 07:19] LABS: BASOPHILS % 0.3 % (0.0-1.0); HEMATOCRIT 41.2 % (38.2-49.6); HEMOGLOBIN 13.3 g/dL (14.0-18.0); LYMPHOCYTES # (AUTO) 0.6 (1.0-3.2); LYMPHOCYTES % 5.5 % (18.0-39.1); MEAN CORPUSCULAR HEMOGLOBIN 30.2 pg (28-32); MEAN CORPUSCULAR HGB CONC 32.3 g/dL (31-35); MEAN CORPUSCULAR VOLUME 93.6 fL (81-99); MONOCYTES # (AUTO) 0.9 (0.2-0.8); MONOCYTES % 7.6 % (4.4-11.3); NEUTROPHILS # (AUTO) 9.6 (2.1-6.9); NEUTROPHILS % 85.6 % (38.7-80.0); PLATELET COUNT 233 x10e3/uL (140-360); RED CELL DISTRIBUTION WIDTH 14.7 % (11.7-14.4)
[2022-09-11 07:39] LABS: ALBUMIN 2.2 g/dL (3.5-5.0); ALBUMIN/GLOBULIN RATIO 0.5 (0.8-2.0); ANION GAP 13.5 mmol/L (8-16); CALCIUM 8.4 mg/dL (8.4-10.2); CREATININE, SERUM 0.74 mg/dL (0.72-1.25); POTASSIUM 3.5 mmol/L (3.5-5.1)
[2022-09-11] MEDS: ASPIRIN 81 MG CHEW TAB PO SCH (08:34)
[2022-09-11] MEDS: DOCUSATE SODIUM 100 MG CAP PO SCH ×2 (08:35→17:37)
[2022-09-11] MEDS: AMIODARONE HCL 200 MG TAB PO SCH ×2 (08:35→17:36)
[2022-09-11] MEDS: LORATADINE 10 MG TAB PO SCH (08:35)
[2022-09-11] MEDS: APIXABAN 5 MG TABLET PO SCH ×2 (08:36→17:36)
[2022-09-11] MEDS: BENZONATATE 100 MG CAP PO SCH ×3 (08:37→21:26)
[2022-09-11] MEDS: SENNOSIDES 8.6 MG TAB PO SCH ×2 (08:37→17:37)
[2022-09-11] MEDS: CLOPIDOGREL BISULFATE 75 MG TAB PO SCH (08:37)
[2022-09-11] MEDS: AMLODIPINE BESYLATE 10 MG TAB PO SCH (08:37)
[2022-09-11] MEDS: Doxycycline IV 100 MG in SODIUM CHLORIDE 0.9% 100 ML IV SCH ×2 (08:38→21:26)
[2022-09-11] MEDS ORDERED: METOPROLOL TARTRATE 25 MG TAB PO SCH (09:00)
[2022-09-11] MEDS: METOPROLOL TARTRATE 25 MG TAB PO SCH ×2 (09:34→21:28)
[2022-09-11] MEDS: METHYLPREDNISOLONE SOD SUCC 40 MG/ML VIAL 1ML IV SCH ×2 (09:53→21:25)
[2022-09-11] MEDS: TAMSULOSIN HCL 0.4 MG CAP PO SCH (21:26)
[2022-09-11] MEDS: SIMVASTATIN 20 MG TAB PO SCH (21:26)
[2022-09-12] VITALS (7 sets, daily range): BP systolic 140–162; BP diastolic 58–70
[2022-09-12 06:25] LABS: BASOPHILS % 0.2 % (0.0-1.0); HEMATOCRIT 40.6 % (38.2-49.6); HEMOGLOBIN 13.5 g/dL (14.0-18.0); LYMPHOCYTES # (AUTO) 0.5 (1.0-3.2); LYMPHOCYTES % 3.6 % (18.0-39.1); MEAN CORPUSCULAR HEMOGLOBIN 30.1 pg (28-32); MEAN CORPUSCULAR HGB CONC 33.3 g/dL (31-35); MONOCYTES # (AUTO) 0.5 (0.2-0.8); MONOCYTES % 3.7 % (4.4-11.3); NEUTROPHILS % 91.6 % (38.7-80.0); PLATELET COUNT 249 x10e3/uL (140-360); RED BLOOD COUNT 4.48 x10e6/uL (4.3-5.7); RED CELL DISTRIBUTION WIDTH 15.1 % (11.7-14.4)
[2022-09-12 06:28] LABS: MEAN CORPUSCULAR VOLUME 90.6 fL (81-99)
[2022-09-12 06:46] LABS: ALBUMIN 2.1 g/dL (3.5-5.0); ALBUMIN/GLOBULIN RATIO 0.5 (0.8-2.0); ANION GAP 15.8 mmol/L (8-16); CALCIUM 8.3 mg/dL (8.4-10.2); CREATININE, SERUM 0.84 mg/dL (0.72-1.25); POTASSIUM 3.8 mmol/L (3.5-5.1)
[2022-09-12] MEDS: Doxycycline IV 100 MG in SODIUM CHLORIDE 0.9% 100 ML IV SCH ×2 (09:37→22:14)
[2022-09-12] MEDS: CLOPIDOGREL BISULFATE 75 MG TAB PO SCH (09:41)
[2022-09-12] MEDS: SENNOSIDES 8.6 MG TAB PO SCH ×2 (09:41→17:00)
[2022-09-12] MEDS: DOCUSATE SODIUM 100 MG CAP PO SCH ×2 (09:41→17:00)
[2022-09-12] MEDS: ASPIRIN 81 MG CHEW TAB PO SCH (09:41)
[2022-09-12] MEDS: LORATADINE 10 MG TAB PO SCH (09:41)
[2022-09-12] MEDS: METHYLPREDNISOLONE SOD SUCC 40 MG/ML VIAL 1ML IV SCH ×2 (09:41→22:14)
[2022-09-12] MEDS: BENZONATATE 100 MG CAP PO SCH ×3 (09:42→22:14)
[2022-09-12] MEDS: METOPROLOL TARTRATE 25 MG TAB PO SCH ×2 (09:42→22:15)
[2022-09-12] MEDS: AMLODIPINE BESYLATE 10 MG TAB PO SCH (09:42)
[2022-09-12] MEDS: APIXABAN 5 MG TABLET PO SCH ×2 (09:42→17:17)
[2022-09-12] MEDS: AMIODARONE HCL 200 MG TAB PO SCH ×2 (09:42→17:17)
[2022-09-12] MEDS: TAMSULOSIN HCL 0.4 MG CAP PO SCH (22:14)
[2022-09-12] MEDS: SIMVASTATIN 20 MG TAB PO SCH (22:14)
[2022-09-13] VITALS (20 sets, daily range): BP systolic 104–150; BP diastolic 41–108
[2022-09-13 06:02] LABS: BASOPHILS % 0.1 % (0.0-1.0); HEMATOCRIT 42.7 % (38.2-49.6); HEMOGLOBIN 13.7 g/dL (14.0-18.0); LYMPHOCYTES # (AUTO) 0.5 (1.0-3.2); LYMPHOCYTES % 3.2 % (18.0-39.1); MEAN CORPUSCULAR HEMOGLOBIN 30.2 pg (28-32); MEAN CORPUSCULAR HGB CONC 32.1 g/dL (31-35); MEAN CORPUSCULAR VOLUME 94.1 fL (81-99); MONOCYTES # (AUTO) 0.4 (0.2-0.8); MONOCYTES % 2.9 % (4.4-11.3); NEUTROPHILS # (AUTO) 13.3 (2.1-6.9); PLATELET COUNT 299 x10e3/uL (140-360); RED BLOOD COUNT 4.54 x10e6/uL (4.3-5.7)
[2022-09-13 06:53] LABS: ALBUMIN 2.1 g/dL (3.5-5.0); ALBUMIN/GLOBULIN RATIO 0.5 (0.8-2.0); ANION GAP 13.9 mmol/L (8-16); CALCIUM 8.4 mg/dL (8.4-10.2); CREATININE, SERUM 0.78 mg/dL (0.72-1.25); POTASSIUM 3.9 mmol/L (3.5-5.1)
[2022-09-13] MEDS: METHYLPREDNISOLONE SOD SUCC 40 MG/ML VIAL 1ML IV SCH ×2 (08:37→20:19)
[2022-09-13] MEDS: BENZONATATE 100 MG CAP PO SCH ×3 (08:38→20:18)
[2022-09-13] MEDS: METOPROLOL TARTRATE 25 MG TAB PO SCH ×2 (08:39→20:22)
[2022-09-13] MEDS: AMIODARONE HCL 200 MG TAB PO SCH ×2 (08:39→16:35)
[2022-09-13] MEDS: AMLODIPINE BESYLATE 10 MG TAB PO SCH (08:40)
[2022-09-13] MEDS: ASPIRIN 81 MG CHEW TAB PO SCH (08:40)
[2022-09-13] MEDS: LORATADINE 10 MG TAB PO SCH (08:40)
[2022-09-13] MEDS: DOCUSATE SODIUM 100 MG CAP PO SCH ×2 (08:40→16:35)
[2022-09-13] MEDS: CLOPIDOGREL BISULFATE 75 MG TAB PO SCH (08:40)
[2022-09-13] MEDS: SENNOSIDES 8.6 MG TAB PO SCH ×2 (08:41→16:35)
[2022-09-13] MEDS: APIXABAN 5 MG TABLET PO SCH ×2 (08:41→16:35)
[2022-09-13] MEDS: Doxycycline IV 100 MG in SODIUM CHLORIDE 0.9% 100 ML IV SCH ×2 (09:47→20:23)
[2022-09-13] MEDS: ROPINIROLE HCL 0.25 MG TAB PO SCH (20:18)
[2022-09-13] MEDS: TAMSULOSIN HCL 0.4 MG CAP PO SCH (20:19)
[2022-09-14] VITALS (26 sets, daily range): BP systolic 105–134; BP diastolic 43–91
[2022-09-14 06:50] LABS: BASOPHILS % 0.1 % (0.0-1.0); HEMATOCRIT 38.4 % (38.2-49.6); HEMOGLOBIN 12.1 g/dL (14.0-18.0); LYMPHOCYTES # (AUTO) 0.5 (1.0-3.2); LYMPHOCYTES % 4.6 % (18.0-39.1); MEAN CORPUSCULAR HEMOGLOBIN 30.3 pg (28-32); MEAN CORPUSCULAR HGB CONC 31.5 g/dL (31-35); MONOCYTES # (AUTO) 0.5 (0.2-0.8); MONOCYTES % 4.3 % (4.4-11.3); NEUTROPHILS # (AUTO) 10.3 (2.1-6.9); PLATELET COUNT 270 x10e3/uL (140-360); RED CELL DISTRIBUTION WIDTH 13.8 % (11.7-14.4)
[2022-09-14 07:15] LABS: ANION GAP 13.1 mmol/L (8-16); CREATININE, SERUM 0.77 mg/dL (0.72-1.25); POTASSIUM 4.1 mmol/L (3.5-5.1)
[2022-09-14] MEDS: ASPIRIN 81 MG CHEW TAB PO SCH (09:05)
[2022-09-14] MEDS: METHYLPREDNISOLONE SOD SUCC 40 MG/ML VIAL 1ML IV SCH ×2 (09:05→20:47)
[2022-09-14] MEDS: LORATADINE 10 MG TAB PO SCH (09:05)
[2022-09-14] MEDS: DOCUSATE SODIUM 100 MG CAP PO SCH ×2 (09:05→16:12)
[2022-09-14] MEDS: APIXABAN 5 MG TABLET PO SCH ×2 (09:06→16:12)
[2022-09-14] MEDS: AMIODARONE HCL 200 MG TAB PO SCH ×2 (09:06→16:12)
[2022-09-14] MEDS: AMLODIPINE BESYLATE 10 MG TAB PO SCH (09:07)
[2022-09-14] MEDS: METOPROLOL TARTRATE 25 MG TAB PO SCH ×2 (09:07→20:47)
[2022-09-14] MEDS: BENZONATATE 100 MG CAP PO SCH ×3 (09:08→20:47)
[2022-09-14] MEDS: CLOPIDOGREL BISULFATE 75 MG TAB PO SCH (09:08)
[2022-09-14] MEDS: Doxycycline IV 100 MG in SODIUM CHLORIDE 0.9% 100 ML IV SCH ×2 (09:08→20:46)
[2022-09-14] MEDS: SENNOSIDES 8.6 MG TAB PO SCH ×2 (09:08→16:12)
[2022-09-14] MEDS: TAMSULOSIN HCL 0.4 MG CAP PO SCH (20:47)
[2022-09-14] MEDS: ROPINIROLE HCL 0.25 MG TAB PO SCH (20:47)
[2022-09-15] VITALS (24 sets, daily range): BP systolic 114–139; BP diastolic 46–99
[2022-09-15 06:34] LABS: BASOPHILS % 0.1 % (0.0-1.0); HEMATOCRIT 39.9 % (38.2-49.6); HEMOGLOBIN 12.5 g/dL (14.0-18.0); LYMPHOCYTES # (AUTO) 0.6 (1.0-3.2); LYMPHOCYTES % 4.5 % (18.0-39.1); MEAN CORPUSCULAR HEMOGLOBIN 30.2 pg (28-32); MEAN CORPUSCULAR HGB CONC 31.3 g/dL (31-35); MEAN CORPUSCULAR VOLUME 96.4 fL (81-99); MONOCYTES # (AUTO) 0.7 (0.2-0.8); MONOCYTES % 5.2 % (4.4-11.3); NEUTROPHILS # (AUTO) 12.2 (2.1-6.9); PLATELET COUNT 272 x10e3/uL (140-360); RED BLOOD COUNT 4.14 x10e6/uL (4.3-5.7); RED CELL DISTRIBUTION WIDTH 13.5 % (11.7-14.4)
[2022-09-15 06:55] LABS: ALBUMIN/GLOBULIN RATIO 0.6 (0.8-2.0); ANION GAP 11.1 mmol/L (8-16); CALCIUM 7.9 mg/dL (8.4-10.2); CREATININE, SERUM 0.74 mg/dL (0.72-1.25); POTASSIUM 4.1 mmol/L (3.5-5.1)
[2022-09-15] MEDS: Doxycycline IV 100 MG in SODIUM CHLORIDE 0.9% 100 ML IV SCH ×2 (08:00→20:43)
[2022-09-15] MEDS: DOCUSATE SODIUM 100 MG CAP PO SCH ×2 (08:01→17:22)
[2022-09-15] MEDS: AMIODARONE HCL 200 MG TAB PO SCH ×2 (08:01→17:22)
[2022-09-15] MEDS: APIXABAN 5 MG TABLET PO SCH ×2 (08:01→17:22)
[2022-09-15] MEDS: ASPIRIN 81 MG CHEW TAB PO SCH (08:01)
[2022-09-15] MEDS: METHYLPREDNISOLONE SOD SUCC 40 MG/ML VIAL 1ML IV SCH ×2 (08:01→20:43)
[2022-09-15] MEDS: LORATADINE 10 MG TAB PO SCH (08:01)
[2022-09-15] MEDS: METOPROLOL TARTRATE 25 MG TAB PO SCH ×2 (08:02→20:44)
[2022-09-15] MEDS: CLOPIDOGREL BISULFATE 75 MG TAB PO SCH (08:03)
[2022-09-15] MEDS: BENZONATATE 100 MG CAP PO SCH ×3 (08:03→20:43)
[2022-09-15] MEDS: SENNOSIDES 8.6 MG TAB PO SCH ×2 (08:03→17:22)
[2022-09-15] MEDS: AMLODIPINE BESYLATE 10 MG TAB PO SCH (08:03)
[2022-09-15] MEDS: ROPINIROLE HCL 0.25 MG TAB PO SCH (20:43)
[2022-09-15] MEDS: TAMSULOSIN HCL 0.4 MG CAP PO SCH (20:44)
[2022-09-16] VITALS (20 sets, daily range): BP systolic 83–180; BP diastolic 44–92
[2022-09-16 06:41] LABS: BASOPHILS % 0.2 % (0.0-1.0); HEMOGLOBIN 12.9 g/dL (14.0-18.0); LYMPHOCYTES % 5.8 % (18.0-39.1); MEAN CORPUSCULAR HEMOGLOBIN 30.4 pg (28-32); MEAN CORPUSCULAR HGB CONC 33.9 g/dL (31-35); MEAN CORPUSCULAR VOLUME 89.6 fL (81-99); MONOCYTES # (AUTO) 0.9 (0.2-0.8); NEUTROPHILS # (AUTO) 14.9 (2.1-6.9); NEUTROPHILS % 87.2 % (38.7-80.0); PLATELET COUNT 294 x10e3/uL (140-360); RED BLOOD COUNT 4.24 x10e6/uL (4.3-5.7); RED CELL DISTRIBUTION WIDTH 13.7 % (11.7-14.4)
[2022-09-16 07:05] LABS: ALBUMIN 2.1 g/dL (3.5-5.0); ALBUMIN/GLOBULIN RATIO 0.5 (0.8-2.0); ANION GAP 9.9 mmol/L (8-16); CALCIUM 8.1 mg/dL (8.4-10.2); CREATININE, SERUM 0.75 mg/dL (0.72-1.25); POTASSIUM 3.9 mmol/L (3.5-5.1)
[2022-09-16] MEDS: DOCUSATE SODIUM 100 MG CAP PO SCH ×2 (08:03→16:15)
[2022-09-16] MEDS: METHYLPREDNISOLONE SOD SUCC 40 MG/ML VIAL 1ML IV SCH ×2 (08:03→21:21)
[2022-09-16] MEDS: LORATADINE 10 MG TAB PO SCH (08:03)
[2022-09-16] MEDS: ASPIRIN 81 MG CHEW TAB PO SCH (08:03)
[2022-09-16] MEDS: BENZONATATE 100 MG CAP PO SCH ×3 (08:03→21:20)
[2022-09-16] MEDS: CLOPIDOGREL BISULFATE 75 MG TAB PO SCH (08:04)
[2022-09-16] MEDS: AMLODIPINE BESYLATE 10 MG TAB PO SCH ×2 (08:04→16:15)
[2022-09-16] MEDS: SENNOSIDES 8.6 MG TAB PO SCH ×2 (08:05→16:16)
[2022-09-16] MEDS: AMIODARONE HCL 200 MG TAB PO SCH ×2 (08:05→16:20)
[2022-09-16] MEDS: METOPROLOL TARTRATE 25 MG TAB PO SCH ×2 (08:05→21:20)
[2022-09-16] MEDS: APIXABAN 5 MG TABLET PO SCH ×2 (08:10→16:16)
[2022-09-16] MEDS: Doxycycline IV 100 MG in SODIUM CHLORIDE 0.9% 100 ML IV SCH ×2 (09:33→21:20)
[2022-09-16] MEDS: ROPINIROLE HCL 0.25 MG TAB PO SCH (21:20)
[2022-09-16] MEDS: TAMSULOSIN HCL 0.4 MG CAP PO SCH (21:20)
[2022-09-17] VITALS (24 sets, daily range): BP systolic 122–173; BP diastolic 52–121
[2022-09-17 06:43] LABS: BASOPHILS % 0.1 % (0.0-1.0); HEMATOCRIT 39.7 % (38.2-49.6); HEMOGLOBIN 12.6 g/dL (14.0-18.0); LYMPHOCYTES # (AUTO) 0.6 (1.0-3.2); LYMPHOCYTES % 3.7 % (18.0-39.1); MEAN CORPUSCULAR HEMOGLOBIN 30.1 pg (28-32); MEAN CORPUSCULAR HGB CONC 31.7 g/dL (31-35); MEAN CORPUSCULAR VOLUME 94.7 fL (81-99); MONOCYTES # (AUTO) 0.8 (0.2-0.8); MONOCYTES % 4.6 % (4.4-11.3); PLATELET COUNT 290 x10e3/uL (140-360); RED BLOOD COUNT 4.19 x10e6/uL (4.3-5.7); RED CELL DISTRIBUTION WIDTH 13.6 % (11.7-14.4)
[2022-09-17 07:14] LABS: ALBUMIN 2.1 g/dL (3.5-5.0); ALBUMIN/GLOBULIN RATIO 0.6 (0.8-2.0); ANION GAP 13.9 mmol/L (8-16); CALCIUM 8.1 mg/dL (8.4-10.2); CREATININE, SERUM 0.74 mg/dL (0.72-1.25); POTASSIUM 3.9 mmol/L (3.5-5.1)
[2022-09-17] MEDS: METHYLPREDNISOLONE SOD SUCC 40 MG/ML VIAL 1ML IV SCH ×2 (08:36→20:51)
[2022-09-17] MEDS: METOPROLOL TARTRATE 25 MG TAB PO SCH ×2 (08:36→20:52)
[2022-09-17] MEDS: DOCUSATE SODIUM 100 MG CAP PO SCH ×2 (08:36→16:04)
[2022-09-17] MEDS: ASPIRIN 81 MG CHEW TAB PO SCH (08:36)
[2022-09-17] MEDS: BENZONATATE 100 MG CAP PO SCH ×3 (08:36→20:51)
[2022-09-17] MEDS: APIXABAN 5 MG TABLET PO SCH ×2 (08:36→16:04)
[2022-09-17] MEDS: AMLODIPINE BESYLATE 10 MG TAB PO SCH (08:37)
[2022-09-17] MEDS: AMIODARONE HCL 200 MG TAB PO SCH ×2 (08:37→16:04)
[2022-09-17] MEDS: SENNOSIDES 8.6 MG TAB PO SCH ×2 (08:37→16:04)
[2022-09-17] MEDS: LORATADINE 10 MG TAB PO SCH (08:37)
[2022-09-17] MEDS: CLOPIDOGREL BISULFATE 75 MG TAB PO SCH (08:37)
[2022-09-17] MEDS: Doxycycline IV 100 MG in SODIUM CHLORIDE 0.9% 100 ML IV SCH ×2 (09:34→20:51)
[2022-09-17] MEDS: TAMSULOSIN HCL 0.4 MG CAP PO SCH (20:51)
[2022-09-17] MEDS: ROPINIROLE HCL 0.25 MG TAB PO SCH (20:51)
[2022-09-18] VITALS (24 sets, daily range): BP systolic 104–158; BP diastolic 51–94
[2022-09-18 07:33] LABS: BASOPHILS % 0.2 % (0.0-1.0); HEMATOCRIT 34.6 % (38.2-49.6); HEMOGLOBIN 11.4 g/dL (14.0-18.0); LYMPHOCYTES # (AUTO) 0.5 (1.0-3.2); LYMPHOCYTES % 2.8 % (18.0-39.1); MEAN CORPUSCULAR HEMOGLOBIN 29.8 pg (28-32); MEAN CORPUSCULAR HGB CONC 32.9 g/dL (31-35); MEAN CORPUSCULAR VOLUME 90.3 fL (81-99); MONOCYTES # (AUTO) 0.9 (0.2-0.8); NEUTROPHILS # (AUTO) 16.8 (2.1-6.9); NEUTROPHILS % 90.2 % (38.7-80.0); PLATELET COUNT 287 x10e3/uL (140-360); RED BLOOD COUNT 3.83 x10e6/uL (4.3-5.7); RED CELL DISTRIBUTION WIDTH 14.1 % (11.7-14.4)
[2022-09-18 07:35] LABS: ALBUMIN/GLOBULIN RATIO 0.6 (0.8-2.0); ANION GAP 13.9 mmol/L (8-16); CALCIUM 7.9 mg/dL (8.4-10.2); CREATININE, SERUM 0.79 mg/dL (0.72-1.25); POTASSIUM 3.9 mmol/L (3.5-5.1)
[2022-09-18] MEDS: Doxycycline IV 100 MG in SODIUM CHLORIDE 0.9% 100 ML IV SCH (08:31)
[2022-09-18] MEDS: METHYLPREDNISOLONE SOD SUCC 40 MG/ML VIAL 1ML IV SCH (08:31)
[2022-09-18] MEDS: BENZONATATE 100 MG CAP PO SCH ×3 (08:32→21:27)
[2022-09-18] MEDS: APIXABAN 5 MG TABLET PO SCH ×2 (08:32→16:45)
[2022-09-18] MEDS: DOCUSATE SODIUM 100 MG CAP PO SCH ×2 (08:32→16:45)
[2022-09-18] MEDS: ASPIRIN 81 MG CHEW TAB PO SCH (08:32)
[2022-09-18] MEDS: AMIODARONE HCL 200 MG TAB PO SCH ×2 (08:33→16:45)
[2022-09-18] MEDS: LORATADINE 10 MG TAB PO SCH (08:33)
[2022-09-18] MEDS: SENNOSIDES 8.6 MG TAB PO SCH ×2 (08:33→16:45)
[2022-09-18] MEDS: AMLODIPINE BESYLATE 10 MG TAB PO SCH (08:33)
[2022-09-18] MEDS: METOPROLOL TARTRATE 25 MG TAB PO SCH ×2 (08:33→21:28)
[2022-09-18] MEDS: CLOPIDOGREL BISULFATE 75 MG TAB PO SCH (08:37)
[2022-09-18] MEDS: CHOLECALCIFEROL 1,000 UNIT TAB PO SCH (19:06)
[2022-09-18] MEDS: ASCORBIC ACID 500 MG TAB PO SCH ×2 (19:06→21:28)
[2022-09-18] MEDS: ZINC SULFATE 220 MG CAP PO SCH (19:06)
[2022-09-18] MEDS: METHYLPREDNISOLONE SOD SUCC 125 MG/2ML VIAL IV SCH (21:27)
[2022-09-18] MEDS: ROPINIROLE HCL 0.25 MG TAB PO SCH (21:28)
[2022-09-18] MEDS: TAMSULOSIN HCL 0.4 MG CAP PO SCH (21:28)
[2022-09-19] VITALS (28 sets, daily range): BP systolic 115–182; BP diastolic 52–107
[2022-09-19] MEDS: ASCORBIC ACID 500 MG TAB PO SCH ×3 (05:33→22:20)
[2022-09-19] MEDS: ZINC SULFATE 220 MG CAP PO SCH (09:15)
[2022-09-19] MEDS: METHYLPREDNISOLONE SOD SUCC 125 MG/2ML VIAL IV SCH ×2 (09:15→20:43)
[2022-09-19] MEDS: CLOPIDOGREL BISULFATE 75 MG TAB PO SCH (09:16)
[2022-09-19] MEDS: LORATADINE 10 MG TAB PO SCH (09:16)
[2022-09-19] MEDS: SENNOSIDES 8.6 MG TAB PO SCH ×2 (09:16→18:06)
[2022-09-19] MEDS: ASPIRIN 81 MG CHEW TAB PO SCH (09:16)
[2022-09-19] MEDS: BENZONATATE 100 MG CAP PO SCH ×3 (09:16→20:42)
[2022-09-19] MEDS: AMIODARONE HCL 200 MG TAB PO SCH ×2 (09:16→18:06)
[2022-09-19] MEDS: DOCUSATE SODIUM 100 MG CAP PO SCH ×2 (09:16→18:06)
[2022-09-19] MEDS: CHOLECALCIFEROL 1,000 UNIT TAB PO SCH (09:16)
[2022-09-19] MEDS: APIXABAN 5 MG TABLET PO SCH ×2 (09:16→18:06)
[2022-09-19] MEDS: AMLODIPINE BESYLATE 10 MG TAB PO SCH (09:17)
[2022-09-19] MEDS: METOPROLOL TARTRATE 25 MG TAB PO SCH ×2 (09:18→20:42)
[2022-09-19] MEDS: ROPINIROLE HCL 0.25 MG TAB PO SCH (20:42)
[2022-09-19] MEDS: TAMSULOSIN HCL 0.4 MG CAP PO SCH (20:42)
[2022-09-20] VITALS (28 sets, daily range): BP systolic 133–218; BP diastolic 55–95
[2022-09-20] MEDS: ASCORBIC ACID 500 MG TAB PO SCH ×3 (06:29→22:28)
[2022-09-20 07:36] LABS: BASOPHILS % 0.2 % (0.0-1.0); HEMOGLOBIN 9.9 g/dL (14.0-18.0); LYMPHOCYTES # (AUTO) 0.5 (1.0-3.2); LYMPHOCYTES % 2.3 % (18.0-39.1); MEAN CORPUSCULAR HEMOGLOBIN 30.7 pg (28-32); MEAN CORPUSCULAR VOLUME 92.9 fL (81-99); MONOCYTES # (AUTO) 0.9 (0.2-0.8); MONOCYTES % 4.6 % (4.4-11.3); NEUTROPHILS % 91.5 % (38.7-80.0); PLATELET COUNT 290 x10e3/uL (140-360); RED BLOOD COUNT 3.23 x10e6/uL (4.3-5.7); RED CELL DISTRIBUTION WIDTH 14.5 % (11.7-14.4)
[2022-09-20 07:52] LABS: ANION GAP 13.7 mmol/L (8-16); CALCIUM 7.5 mg/dL (8.4-10.2); CREATININE, SERUM 0.81 mg/dL (0.72-1.25); POTASSIUM 3.7 mmol/L (3.5-5.1)
[2022-09-20] MEDS: ASPIRIN 81 MG CHEW TAB PO SCH (08:28)
[2022-09-20] MEDS: APIXABAN 5 MG TABLET PO SCH ×2 (08:28→17:43)
[2022-09-20] MEDS: METHYLPREDNISOLONE SOD SUCC 125 MG/2ML VIAL IV SCH ×2 (08:28→20:42)
[2022-09-20] MEDS: METOPROLOL TARTRATE 25 MG TAB PO SCH ×2 (08:28→20:41)
[2022-09-20] MEDS: AMIODARONE HCL 200 MG TAB PO SCH ×2 (08:29→17:43)
[2022-09-20] MEDS: CHOLECALCIFEROL 1,000 UNIT TAB PO SCH (08:29)
[2022-09-20] MEDS: CLOPIDOGREL BISULFATE 75 MG TAB PO SCH (08:29)
[2022-09-20] MEDS: AMLODIPINE BESYLATE 10 MG TAB PO SCH (08:29)
[2022-09-20] MEDS: DOCUSATE SODIUM 100 MG CAP PO SCH ×2 (08:29→17:43)
[2022-09-20] MEDS: ZINC SULFATE 220 MG CAP PO SCH (08:29)
[2022-09-20] MEDS: SENNOSIDES 8.6 MG TAB PO SCH ×2 (08:30→17:43)
[2022-09-20] MEDS: BENZONATATE 100 MG CAP PO SCH ×3 (08:30→20:40)
[2022-09-20] MEDS: LORATADINE 10 MG TAB PO SCH (08:30)
[2022-09-20] MEDS: ROPINIROLE HCL 0.25 MG TAB PO SCH (20:40)
[2022-09-20] MEDS: TAMSULOSIN HCL 0.4 MG CAP PO SCH (20:40)
[2022-09-21] VITALS (23 sets, daily range): BP systolic 144–222; BP diastolic 57–119
[2022-09-21] MEDS: ASCORBIC ACID 500 MG TAB PO SCH ×3 (06:00→14:00)
[2022-09-21] MEDS: AMIODARONE HCL 200 MG TAB PO SCH ×3 (08:11→17:00)
[2022-09-21] MEDS: METHYLPREDNISOLONE SOD SUCC 125 MG/2ML VIAL IV SCH (08:11)
[2022-09-21] MEDS: LORATADINE 10 MG TAB PO SCH ×2 (08:11→09:00)
[2022-09-21] MEDS: ASPIRIN 81 MG CHEW TAB PO SCH ×2 (08:11→09:00)
[2022-09-21] MEDS: DOCUSATE SODIUM 100 MG CAP PO SCH ×3 (08:11→17:00)
[2022-09-21] MEDS: CLOPIDOGREL BISULFATE 75 MG TAB PO SCH ×2 (08:11→09:00)
[2022-09-21] MEDS: ZINC SULFATE 220 MG CAP PO SCH ×2 (08:11→09:00)
[2022-09-21] MEDS: CHOLECALCIFEROL 1,000 UNIT TAB PO SCH ×2 (08:12→09:00)
[2022-09-21] MEDS: AMLODIPINE BESYLATE 10 MG TAB PO SCH ×2 (08:12→09:00)
[2022-09-21] MEDS: APIXABAN 5 MG TABLET PO SCH ×3 (08:13→17:00)
[2022-09-21] MEDS: BENZONATATE 100 MG CAP PO SCH ×3 (08:13→15:00)
[2022-09-21] MEDS: SENNOSIDES 8.6 MG TAB PO SCH ×3 (08:13→17:00)
[2022-09-21] MEDS: METOPROLOL TARTRATE 25 MG TAB PO SCH ×2 (08:13→09:00)
[2022-09-21] MEDS ORDERED: DEXMEDETOMIDINE 400MCG/NS100ML 100 ML IV PRN (16:00)
[2022-09-21] MEDS ORDERED: LORAZEPAM INJ 2 MG/ML VIAL IV PRN (17:30)
[2022-09-21] MEDS ORDERED: Morphine 2mg Syringe 2 MG/ML SYR IV PRN (19:15)
== END 2022-09-22 01:12 | disposition expired | DRG 177 ==
LOC: ER 08:15 → ERHOLD 11:13 → MED/SURG3 12:34 → ICU 09-13 09:05
PROVIDERS: ADMIT Internal Medicine; ATTEND Internal Medicine
PROC: 8E0ZXY6 Isolation (ICD-10-PCS; principal; 2022-09-10)
PROC: 5A0955A Assistance with Respiratory Ventilation, Greater than 96 Consecutive Hours, High Flow/Velocity Cannula (ICD-10-PCS; 2022-09-13)
DX: U07.1 COVID-19 (principal); I50.33 Acute on chronic diastolic (congestive) heart failure; J18.9 Pneumonia, unspecified organism; J96.21 Acute and chronic respiratory failure with hypoxia; N39.0 Urinary tract infection, site not specified; E87.1 Hypo-osmolality and hyponatremia; D64.9 Anemia, unspecified; E78.5 Hyperlipidemia, unspecified; N40.0 Benign prostatic hyperplasia without lower urinary tract symptoms; I48.0 Paroxysmal atrial fibrillation; R00.0 Tachycardia, unspecified; I11.0 Hypertensive heart disease with heart failure; J84.10 Pulmonary fibrosis, unspecified; D35.01 Benign neoplasm of right adrenal gland; K56.41 Fecal impaction; J43.9 Emphysema, unspecified; I35.0 Nonrheumatic aortic (valve) stenosis; Z79.01 Long term (current) use of anticoagulants; Z99.81 Dependence on supplemental oxygen; Z79.82 Long term (current) use of aspirin; Z86.73 Personal history of transient ischemic attack (TIA), and cerebral infarction without residual deficits; Z87.891 Personal history of nicotine dependence; Z66 Do not resuscitate
CPT/HCPCS: 36415; 36569; 71045; 71260; 74176; 74230; 80048; 80053; 81001; 83605; 83880; 84145; 84484; 85025; 85610; 85730; 86850; 86900; 86920; 87040; 87086; 87400; 93005; 94760; 94799; 99252; 99284; J0456; J0696; J2060; J2270; J2405; J2543; J2920; J2930; J7050; P9016; Q9967